=== PATIENT | female | born 1930 | race Caucasian/White ===

== ENCOUNTER → 2018-05-10 | Outpatient (CLI) | payer MEDICARE ==
[2015-07-31 12:36] VITALS: BMI 20.8
[~2018-05-10] MED LIST: ACET-2007 PO; ARTO15 OU; ASPI81TA86 PO; ATOR10TA24 PO; CELE-1 PO; DOCU-202 PO; LISI-362 PO; MUP2T TOP; POLY17PO21 PO; ROS10 PO; VALS1TAB96 PO
--- NOTE | 2018-05-10 17:10 | EKG ---
FACILITY: [facility] PATIENT NAME: KATELYNN TEJADA : [id number] MR: [id number]: [id number] EXAM DATE: ORDERING PHYSICIAN: MEGHNA CAMACHO TECHNOLOGIST: DEMETRIUS Test Reason : OUT PT Blood Pressure : / mmHG Vent. Rate : 096 BPM Atrial Rate : 079 BPM P-R Int : 000 ms QRS Dur : 106 ms QT Int : 362 ms P-R-T Axes : 000 -88 052 degrees QTc Int : 457 ms Atrial fibrillation Left anterior fascicular block Nonspecific ST abnormality Abnormal ECG When compared with ECG of 03-JUN-2017 13:50, Atrial fibrillation has replaced sinus arrythmia Confirmed by Grant Oscar [id number] on 05/10/2018 8:13:45 PM Referred By: JANICE Confirmed By:Grant Burroughs
== END ==
LOC: CARD 16:41
PROVIDERS: ATTEND Family Medicine
DX: E86.0 Dehydration (principal); I49.9 Cardiac arrhythmia, unspecified
CPT/HCPCS: 36415; 82040; 82247; 82310; 82374; 82435; 82565; 82947; 84075; 84132; 84155; 84295; 84443; 84450; 84460; 84520; 85027; 93005

== ENCOUNTER → 2018-06-27 | Outpatient (CLI) | payer MEDICARE ==
[2015-07-31 12:36] VITALS: BMI 20.8
[~2018-06-27] MED LIST changes: +POLY17PO11 PO; -POLY17PO21 PO
== END ==
LOC: AMB 12:54
PROVIDERS: ATTEND Nurse Practitioner
DX: Z51.5 Encounter for palliative care (principal)
CPT/HCPCS: A0425; A0428